=== PATIENT | male | born 1960 | race Caucasian/White ===

== ENCOUNTER 2016-05-06 09:21 | Outpatient (CLI) ==
[2015-05-01 13:51] VITALS: BMI 41.2
[2016-05-06 09:56] LABS: BASOPHILS % (AUTO) 0.3 % (0.0-3.0); EOSINOPHILS # (AUTO) 0.1 K/ul (0.0-0.7); EOSINOPHILS % (AUTO) 1.3 % (0.0-7.0); HEMATOCRIT 47.4 % (42.0-52.0); IMMATURE GRANULOCYTE % (AUTO) 0.2 % (0.0-5.0); LYMPHOCYTES # (AUTO) 1.3 K/uL (0.60-3.4); LYMPHOCYTES % (AUTO) 20.4 (10.0-50.0); MEAN CORPUSCULAR HEMOGLOBIN 30.5 pg (27.0-31.0); MEAN CORPUSCULAR HGB CONC 33.8 (31.8-35.4); MEAN CORPUSCULAR VOLUME 90.5 fl (80.0-94.0); MONOCYTES # (AUTO) 0.4 K/uL (0.4-2.0); MONOCYTES % (AUTO) 6.3 (0-10); NEUTROPHILS # (AUTO) 4.6 K/ul (2.0-6.9); NEUTROPHILS % (AUTO) 71.5; PLATELET COUNT 138 10^3/uL (140-440); RED BLOOD COUNT 5.24 10^6/ul (4.70-6.10); WHITE BLOOD COUNT 6.38 K/ul (4.2-10.2)
[2016-05-06 10:06] LABS: BILIRUBIN,URINE Negative (NEGATIVE); KETONES,URINE Negative (NEGATIVE); LEUKOCYTE ESTERASE ,URINE Negative (NEGATIVE); NITRITE,URINE Negative (NEGATIVE); PROTEIN,URINE Negative (NEGATIVE); URINE, BLOOD Negative (NEGATIVE)
[2016-05-06 10:07] LABS: ADD URINE MICROSCOPIC NO
[2016-05-06 10:16] LABS: ALBUMIN 3.4 g/dL (3.4-5.0); ALBUMIN/GLOBULIN RATIO 0.97; ANION GAP 11.2; BILIRUBIN,TOTAL 0.68 mg/dL (0.00-1.20); BUN/CREATININE RATIO 19.31; CALCIUM 8.9 mg/dL (8.2-10.2); CHOL/HDL RATIO 4.6 (4.5-6.4); CREATININE 0.88 mg/dL (0.60-1.10); POTASSIUM 4.2 mmol/L (3.5-5.1); TOTAL PROTEIN 6.9 g/dL (6.4-8.2)
== END 2016-05-06 09:22 | disposition home or self-care (01) ==
LOC: LAB 09:21
PROVIDERS: ATTEND General Practice
DX: I10 Essential (primary) hypertension (principal); E11.9 Type 2 diabetes mellitus without complications; E55.9 Vitamin D deficiency, unspecified; I25.2 Old myocardial infarction; Z79.899 Other long term (current) drug therapy
CPT/HCPCS: 36415; 80053; 80061; 81001; 83036; 85025

== ENCOUNTER 2016-10-21 14:42 | Outpatient (CLI) ==
[2015-05-01 13:51] VITALS: BMI 41.2
[2016-10-21 14:59] LABS: BASOPHILS % (AUTO) 0.2 % (0.0-3.0); EOSINOPHILS % (AUTO) 0.7 % (0.0-7.0); HEMATOCRIT 48.3 % (42.0-52.0); HEMOGLOBIN 16.2 g/dl (14.0-18.0); IMMATURE GRANULOCYTE % (AUTO) 0.2 % (0.0-5.0); MEAN CORPUSCULAR HEMOGLOBIN 30.6 pg (27.0-31.0); MEAN CORPUSCULAR HGB CONC 33.5 (31.8-35.4); MEAN CORPUSCULAR VOLUME 91.3 fl (80.0-94.0); MONOCYTES # (AUTO) 0.3 K/uL (0.4-2.0); MONOCYTES % (AUTO) 4.8 (0-10); NEUTROPHILS # (AUTO) 4.1 K/ul (2.0-6.9); NEUTROPHILS % (AUTO) 76.1; PLATELET COUNT 136 10^3/uL (140-440); RED BLOOD COUNT 5.29 10^6/ul (4.70-6.10); WHITE BLOOD COUNT 5.44 K/ul (4.2-10.2)
[2016-10-21 15:00] LABS: BILIRUBIN,URINE Negative (NEGATIVE); KETONES,URINE Negative (NEGATIVE); LEUKOCYTE ESTERASE ,URINE Negative (NEGATIVE); NITRITE,URINE Negative (NEGATIVE); PH,URINE 5.5 (5-9); PROTEIN,URINE Negative (NEGATIVE); URINE, BLOOD Trace-intact (NEGATIVE)
[2016-10-21 15:08] LABS: ADD URINE MICROSCOPIC YES
[2016-10-21 15:15] LABS: ALBUMIN 3.6 g/dL (3.4-5.0); ALBUMIN/GLOBULIN RATIO 1.06; ANION GAP 11.1; BILIRUBIN,TOTAL 0.72 mg/dL (0.00-1.20); BUN/CREATININE RATIO 17.07; CALCIUM 8.8 mg/dL (8.2-10.2); CHOL/HDL RATIO 4.2 (4.5-6.4); CREATININE 0.82 mg/dL (0.60-1.10); POTASSIUM 4.1 mmol/L (3.5-5.1)
== END 2016-10-21 14:43 | disposition home or self-care (01) ==
LOC: LAB 14:42
PROVIDERS: ATTEND General Practice
DX: E11.9 Type 2 diabetes mellitus without complications (principal); E55.9 Vitamin D deficiency, unspecified; E88.81 Metabolic syndrome and other insulin resistance; I10 Essential (primary) hypertension; I25.2 Old myocardial infarction; R73.9 Hyperglycemia, unspecified; Z79.899 Other long term (current) drug therapy
CPT/HCPCS: 36415; 80053; 80061; 81001; 83036; 85025

== ENCOUNTER 2017-04-28 10:14 | Outpatient (CLI) ==
[2015-05-01 13:51] VITALS: BMI 41.2
== END 2017-04-28 10:15 | disposition home or self-care (01) ==
LOC: FCC-LAB 10:14
PROVIDERS: ATTEND General Practice
DX: E11.9 Type 2 diabetes mellitus without complications (principal); I10 Essential (primary) hypertension; E55.9 Vitamin D deficiency, unspecified; E88.81 Metabolic syndrome and other insulin resistance; Z79.899 Other long term (current) drug therapy
CPT/HCPCS: 36415; 80053; 80061; 81001; 83036; 85025

== ENCOUNTER 2017-05-05 11:17 | Outpatient (CLI) ==
[2015-05-01 13:51] VITALS: BMI 41.2
== END 2017-05-05 11:18 | disposition home or self-care (01) ==
LOC: FCC-LAB 11:17
PROVIDERS: ATTEND General Practice
DX: E55.9 Vitamin D deficiency, unspecified (principal)
CPT/HCPCS: 36415; 82306

== ENCOUNTER 2017-08-25 09:34 | Outpatient (CLI) ==
[2015-05-01 13:51] VITALS: BMI 41.2
== END 2017-08-25 09:35 | disposition home or self-care (01) ==
LOC: RHC-LAB 09:34
PROVIDERS: ATTEND General Practice
DX: E55.9 Vitamin D deficiency, unspecified (principal); E11.9 Type 2 diabetes mellitus without complications; I10 Essential (primary) hypertension; I25.10 Atherosclerotic heart disease of native coronary artery without angina pectoris; F19.99 Other psychoactive substance use, unspecified with unspecified psychoactive substance-induced disorder; Z12.5 Encounter for screening for malignant neoplasm of prostate
CPT/HCPCS: 36415; 80053; 80061; 81001; 83036; 85025

== ENCOUNTER 2017-09-01 12:05 | Outpatient (CLI) ==
[2015-05-01 13:51] VITALS: BMI 41.2
--- NOTE | 2017-09-02 06:41 | STRESSECHO ---
Date of Test: 09/01/17 Ordering Physician: DR. SAVITA LEMUS Occupation: ENGINEER PROCESS Reason for Exam: CHEST PAIN, H/O [place] 2000, HTN, DM Smoking History: NO Height : 74" Weight: 323 LBS Current Medications: METOPROLOL, VITAMINS Resting EKG: SINUS RHYTHM/ NO ACUTE CHANGES Target Heart Rate: 137/162 S-T SEGMENT STAGE MPH/GRADE HEART RATE BPM BLOOD PRESSURE MMHG RHYTHM +/- ELEVATION DEPRESSION SYMPTOMS,COMMENTS AT REST 55 142/76 SR X NONE 1 1.7/10% 106 150/80 SR X NONE 2 2.5/12% 120 SR X NONE 3 3.4/14% 4 4.2/16% 5 5.0/18% Immediately After 120 SR X SHORT OF BREATH Minutes Post Exercise 4 70 130/72 SR X NO COMMENTS Minutes Post Exercise 10 65 138/82 SR X NO COMMENTS DURATION OF EXERCISE: MAXIMUM HEART RATE REACHED: 120 BPM REASON FOR TERMINATION: SHORT OF BREATH 95% OXYGEN SATURATION WITH EXERCISE ON ROOM AIR METS 7.4 INTERPRETATION: 1. TEST POSITIVE FOR ISCHEMIC ST-T WAVE CHANGES 2. VAGUE CHEST DISCOMFORT WITH EXERCISE--BETTER WITHIN 1/2 MINUTE POST EXERCISE 3. NO ARRHYTHMIAS 4. BLOOD PRESSURE RESPONSE ADEQUATE NORMAL LEFT VENTRICULAR CONTRACTILITY--RESTING AND POST EXERCISE (DIFFICULT STUDY BECAUSE OF BODY HABITUS) MTDD
--- NOTE | 2017-09-02 08:59 | ECHOSTRESS ---
Date of Exam: 09/01/17 Ordering Physician: DR. SAVITA LEMUS Reason for Echo: CHEST PAIN, HX [place] 2000, DM, HTN, STRESS TEST--POSITIVE FOR ISCHEMIA M-Mode Normal Adult Results LV Dimensions Normal Adult Results AoV Opening excursions >1.6 LVEDD-base- 3.5-5.8 Ao root dimensions 2.0-3.7 LVESD-base- 3.1-4.6 L. Atrium dimensions 1.9-3.8 Post. Wall thickness 0.8-1.1 IV septum (thickness) 0.7-1.2 Post. Wall excursion 0.72-1.3 Septal motion Systolic motion R. Ventricular cavity 1.5-2.0 LVEF 60% Paradoxical septal wall motion 2-D: NORMAL LEFT VENTRICULAR CONTRACTILITY--RESTING AND POST EXERCISE M-MODE: MV: AV: TV: PV: CHAMBER SIZE: WALL MOTION: NORMAL LEFT VENTRICULAR CONTRACTILITY--RESTING AND POST EXERCISE 4 PERICARDIUM: INTERPRETATION: 1. NORMAL LEFT VENTRICULAR CONTRACTILITY--RESTING AND POST EXERCISE MTDD
== END 2017-09-01 12:06 | disposition home or self-care (01) ==
LOC: CAR 12:05
PROVIDERS: ATTEND General Practice
DX: R07.9 Chest pain, unspecified (principal)

== ENCOUNTER 2017-12-12 09:28 | Outpatient (CLI) ==
[2015-05-01 13:51] VITALS: BMI 41.2
== END 2017-12-12 09:29 | disposition home or self-care (01) ==
LOC: RHC-LAB 09:28
PROVIDERS: ATTEND General Practice
DX: E11.9 Type 2 diabetes mellitus without complications (principal); I10 Essential (primary) hypertension; E55.9 Vitamin D deficiency, unspecified; I25.10 Atherosclerotic heart disease of native coronary artery without angina pectoris
CPT/HCPCS: 36415; 80053; 80061; 81001; 82306; 83036; 85025